=== PATIENT | male | born 1965 | race Caucasian/White ===

== ENCOUNTER 2019-05-02 09:18 | Outpatient (CLI) | payer BC, SELFPAY ==
--- NOTE | 2019-05-02 09:27 | XR_ITS ---
WS: [id number] Chest 2 views, 05/02/2019 Clinical Data: Dyspnea, cough Comparison: Portable chest, 08/30/2018. Findings: No nodules, masses or effusions are seen. The heart is normal. The pulmonary vascularity is not increased. No pneumonia or pneumothorax is seen. The aortic arch and descending aorta are minima lly tortuous. XR/XR chest 2V* 14241 Impression: Atherosclerosis.
== END 2019-05-02 09:19 | disposition home or self-care (01) ==
LOC: RADWPI 09:22
PROVIDERS: Family Provider Internal Medicine; PCP Internal Medicine; Visit Provider Nurse Practitioner Family
DX: I70.90 Unspecified atherosclerosis (principal); R06.00 Dyspnea, unspecified; R05 Cough
CPT/HCPCS: 71046

== ENCOUNTER 2019-07-03 07:53 | Outpatient (CLI) | payer BC, SELFPAY ==
--- NOTE | 2019-07-03 08:10 | CT_ITS ---
WS: [id number] CTA THORACIC AORTA WITH AND WITHOUT HISTORY: THORACIC AORTIC ANEURYSM TECHNIQUE: CT imaging of the thorax is performed with and without contrast. After noncontrast imaging is performed, CT angiogram is performed during injection of Omnipaque 350; 95 mL IV.. Sagittal and c oronal reconstructions, sagittal and coronal MIP imaging is submitted. All CT scans at [facility] use at least one of these dose optimization techniques: automated exposure control; mA and/o r kV adjustment per patient size (includes targeted exams where dose is matched to clinical indicatio n); or iterative reconstruction. DLP: 1457.53 mGycm COMPARISON: 05/02/2018 and 10/10/2017 Mild dilatation of the ascending thoracic aorta. Maximum transverse diameter of 4.5 cm is stable. The re is very mild atherosclerotic plaque. No dissection or progression of the aneurysm. Pulmonary arter y size is normal. Great vessels arise normally from the aortic arch. There are small calcified and noncalcified distal mediastinal and hilar lymph nodes. No increase in s ize or number of the lymph nodes. Scattered calcifications throughout the lungs. Lungs are slightly hyperinflated. No mass or nodule or pneumonia. No pericardial or pleural effusions. Lower neck and the chest wall are normal. Cholelithiasis without evidence for acute cholecystitis. Stable parapelvic cysts LEFT kidney. No adre nal mass. Moderate increase in thoracic kyphosis. CT/CT angio chest 52965 IMPRESSION: 1. Stable mild aneurysmal dilatation of the ascending aorta at 4.5 cm. Prior m easurement of 4.4 cm. 2. Mild atherosclerosis aorta. 3. Prior granulomatous disease. 4. Cholelithiasis without acute cholecystitis.
[2019-07-03] MEDS: iohexol 350 mg/mL 100 mL Btl IV (08:32)
== END 2019-07-03 07:54 | disposition home or self-care (01) ==
LOC: RADWPI 07:57
PROVIDERS: Family Provider Internal Medicine; PCP Internal Medicine; Visit Provider Internal Medicine Cardiovascular Disease
DX: I71.2 Thoracic aortic aneurysm, without rupture (principal); I70.0 Atherosclerosis of aorta; K80.20 Calculus of gallbladder without cholecystitis without obstruction
CPT/HCPCS: 71275; Q9967

== ENCOUNTER 2019-07-18 09:16 | Outpatient (CLI) | payer BC, SELFPAY ==
--- NOTE | 2019-07-18 09:26 | XR_ITS ---
WS: [id number] RIGHT SHOULDER: 3 VIEW(S) TECHNIQUE: Internal and external rotation with Y view. HISTORY: SHOULDER Pain, right COMPARISON: None available. No fracture or dislocation or soft tissue abnormality. Moderate AC joint arthritis and narrowing. 4.5 mm osteophyte from the distal clavicle extends towards the rotator cuff. Similar osteophyte from the adjacent acromion. RIGHT lung granulomata. XR/XR shoulder RT min 2V* [id number] IMPRESSION: Moderate AC joint arthritis with hypertrophic osteophytes extending towards the rotator cuff.
== END 2019-07-18 09:17 | disposition home or self-care (01) ==
LOC: RADWPI 09:18
PROVIDERS: Family Provider Internal Medicine; PCP Internal Medicine; Visit Provider Nurse Practitioner Family
DX: M25.511 Pain in right shoulder (principal); M25.711 Osteophyte, right shoulder
CPT/HCPCS: 73030

== ENCOUNTER 2020-09-21 08:20 | Emergency (ER) | payer BC, SELFPAY ==
[2020-09-21 08:27] VITALS: BP 148/95; PULSE 83; RESP 20; TEMP 36.6; O2SAT 100
--- NOTE | 2020-09-21 08:31 | XRR_ITS ---
PROCEDURE INFORMATION: Exam: XR Chest Exam date and time: 09/21/2020 8:31 AM Age: 54 years old Clinical indication: Pain; Angina pectoris; Additional info: Chest pain TECHNIQUE: Imaging protocol: XR of the chest. Views: 1 view. COMPARISON: XR CHEST 05/02/2019 9:32 AM FINDINGS: Lungs: No pneumonia or pulmonary edema. Prior pulmonary granulomatous disease. Pleural spaces: No pleural effusion or pneumothorax. Heart/Mediastinum: The cardiac silhouette is not enlarged. The mediastinal contours are normal. Vasculature: No definite change in the appearance of the thoracic aorta, though CT CHEST with IV contrast would be more definitive. Bones/joints: There is diffuse idiopathic skeletal hyperostosis. XR/XR chest 1V portable [id number] IMPRESSION: No significant change when compared to XR CHEST 05/02/2019 9:32 AM.
--- NOTE | 2020-09-21 08:31 | ECG_ITS ---
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 Measurements Intervals [place] Rate: 69 P: 29 TN: 163 QRS: 6 QRSD: 96 T: 9 QT: 359 QTc: 386 Interpretive Statements SINUS RHYTHM Compared to ECG 08/30/2018 15:13:27 Early repolarization no longer present Electronically Signed On 09-21-2020 17:28:33 CDT by Tanvir Smith M.D. [id number]
--- NOTE | 2020-09-21 08:42 | W.ED.SOB ---
HPI - SOB/Dyspnea General: Chief Complaint: Shortness of Breath/Dyspnea Stated Complaint: Trouble Breathing/Light Headed/Slight CP Time Seen by Provider: 09/21/20 08:30 History of Present Illness: HPI Narrative: 54-year-old male presents to the emergency room with complaints of late chest pain and some onset of shortness of breath this morning. Patient has a history of a bicuspid valve thoracic aortic aneurysm and he is diabetic. He has previously been vaccinated for Covid. He had stress test which is negative about 2 to 3 years ago. He has had a very slight cough which is been nonproductive he denies any fever chills or myalgias. Chest pain does not radiate anywhere and is very slight and vague. MD elicited complaint: shortness of breath and cough Pertinent past history: diabetes and other (Bicuspid aortic valve, thoracic aortic aneurysm) Onset (ago): hour(s) Timing: constant Severity: moderate Exacerbating factors: exertion and coughing Relieving factors: rest Known history of: diabetes Associated symptoms: Deny abdominal pain, chest congestion, chest pain, cough, diaphoresis, dizziness, extremity pain, fever(s), hemoptysis, lightheadedness, myalgias, nausea, orthopnea, palpitations, paresthesias, polydipsia, polyuria, rash, sense of impending doom, syncope or vomiting Treatment prior to arrival: none Review of Systems Const: Denies: fever(s) or diaphoresis ENMT: Denies: throat pain, ear or mastoid pain, nasal discharge or nasal congestion Card: Denies: chest pain, palpitations, lightheadedness, syncope or orthopnea Resp: Denies: hemoptysis or chest congestion GI: Denies: abdominal pain, nausea or vomiting : Denies: flank pain, dysuria, urinary frequency or urinary urgency Musc: Denies: extremity pain Skin/Breast: Denies: rash or pruritus Neuro: Denies: dizziness Endo: Denies: polyuria or polydipsia PFSH ED PFSH: Medical History Bicuspid aortic valve Diabetes Hx of rheumatic fever Hyperlipidemia Thoracic aortic aneurysm Family History Other CAD (coronary artery disease) Diabetes Hypertension Seizure Social History Smoking and tobacco status: never smoked Alcohol intake: current Alcohol intake frequency: holidays/special occasions only Physical Exam Const: COMMON NORMALS: no acute distress GENERAL APPEARANCE: cooperative and comfortable ORIENTATION/CONSCIOUSNESS: Yes awake, Yes oriented to person, Yes oriented to place and Yes oriented to time HENMT: COMMON NORMALS: normocephalic, atraumatic and hearing grossly normal bilaterally HEAD & SCALP: normocephalic and atraumatic Neck/C-Spine: COMMON NORMALS: no JVD Resp: COMMON NORMALS: normal respiratory effort, No retractions, No use of accessory muscles and clear to auscultation bilaterally AUSCULTATION: clear to auscultation bilaterally Cardio: COMMON NORMALS: no JVD, regular rate, regular rhythm and No murmurs present (Cardio) RATE: regular rate RHYTHM: regular rhythm GI: COMMON NORMALS: Soft to palpation and No hepatosplenomegaly present AUSCULTATION: Yes normoactive bowel sounds PALPATION: Yes Soft to palpation, No Tenderness to palpation present (GI), No Guarding due to palpation present (GI) and Yes No hepatosplenomegaly present Extremity: COMMON NORMALS: normal to inspection, capillary refill normal, no clubbing, cyanosis or edema, no calf tenderness and no pedal edema Neuro: SENSORIUM/ORIENTATION: Yes oriented to person, Yes oriented to place and Yes oriented to time Skin: COMMON NORMALS: no rashes or lesions noted GENERAL SKIN EXAM: no rashes or lesions noted Course Vital Signs: Vital signs: Vital Signs Temperature 97.9 F 09/21/20 08:27 Pulse Rate 70 09/21/20 12:51 Respiratory Rate 16 09/21/20 11:05 Blood Pressure 160/92 09/21/20 12:51 Pulse Oximetry 98 09/21/20 12:51 MDM - SOB/Dyspnea MDM Narrative: Medical decision making narrative: Reviewed labs EKG and imaging findings with the patient. Organ to discharge him home have him take aspirin daily isosorbide mononitrate 30 mg daily set him up for outpatient testing through the case management. Sestamibi stress test MRI of head. Return to emergency room immediately if he has any problems. Otherwise follow-up with his primary care doctor in the next 3 to 5 days to reevaluate blood pressure. Lab Data: Labs: Lab Results 09/21/20 09/21/20 09/21/20 Range/Units 08:27 08:51 08:51 WBC 6.0 (4.0-10.0) 10^3/ uL RBC 5.07 (4.1-5.3) 10^6/u L Hgb 15.2 (11.7-16.6) g/dL Hct 44.0 (42.0-52.0) % MCV 86.8 (80-94) fL MCH 30.0 (28.0-34.0) pg MCHC 34.5 (30.0-36.0) g/dL RDW 11.8 L (12.1-15.1) % Plt Count 292 (130-400) 10^3/c mm MPV 10.1 (7.4-10.4) fL Neut % (Auto) 42.9 % Lymph % (Auto) 39.2 % [place] % (Auto) 13.4 % Eos % (Auto) 3.4 % Baso % (Auto) 0.8 % Neut # (Auto) 2.56 (1.8-7.7) 10^3/u L Lymph # (Auto) 2.3 (0.8-4.8) 10^3/u L [place] # (Auto) 0.8 (0.2-0.9) 10^3/u L Eos # (Auto) 0.2 (0.0-0.8) 10^3/u L Baso # (Auto) 0.1 (0.0-0.1) 10^3/u L Nucleated RBC % (a uto) 0 % Nucleated RBCs # 0.0 /100WBC Sodium 141 (136-145) mmol/L Potassium 3.8 (3.5-5.1) mmol/L Chloride 104 (98-107) mmol/L Carbon Dioxide 24 (22-29) mmol/L Anion Gap 16.8 (5-19) BUN 12 (6-20) mg/dL Creatinine 0.7 (0.7-1.2) mg/dL GFR Calculation 118.0 (90-130) mL/min Glucose 104 (65-115) mg/dL POC Glucose 129 H (70-110) mg/dL Calculated Osmolal ity 292 (285-295) mOsm/k g Calcium 9.3 (8.5-10.5) mg/dL Total Bilirubin 0.7 (0.15-1.2) mg/dL AST 23 (0-40) U/L ALT 20 (0-41) U/L Alkaline Phosphata se 89 (40-130) IU/L Troponin T Baselin e (0-15) ng/L Troponin T 120 Min [place] (0-15) ng/L Delta Troponin T (0-10) ABS# Total Protein 6.7 (6.6-8.7) g/dL Albumin 4.5 (3.5-5.2) g/dL Globulin 2.2 (1.3-4.6) g/dL 09/21/20 09/21/20 09/21/20 Range/Units 08:51 11:29 11:45 WBC (4.0-10.0) 10^3/ uL RBC (4.1-5.3) 10^6/u L Hgb (11.7-16.6) g/dL Hct (42.0-52.0) % MCV (80-94) fL MCH (28.0-34.0) pg MCHC (30.0-36.0) g/dL RDW (12.1-15.1) % Plt Count (130-400) 10^3/c mm MPV (7.4-10.4) fL Neut % (Auto) % Lymph % (Auto) % [place] % (Auto) % Eos % (Auto) % Baso % (Auto) % Neut # (Auto) (1.8-7.7) 10^3/u L Lymph # (Auto) (0.8-4.8) 10^3/u L [place] # (Auto) (0.2-0.9) 10^3/u L Eos # (Auto) (0.0-0.8) 10^3/u L Baso # (Auto) (0.0-0.1) 10^3/u L Nucleated RBC % (a uto) % Nucleated RBCs # /100WBC Sodium (136-145) mmol/L Potassium (3.5-5.1) mmol/L Chloride (98-107) mmol/L Carbon Dioxide (22-29) mmol/L Anion Gap (5-19) BUN (6-20) mg/dL Creatinine (0.7-1.2) mg/dL GFR Calculation (90-130) mL/min Glucose (65-115) mg/dL POC Glucose 42 L (70-110) mg/dL Calculated Osmolal ity (285-295) mOsm/k g Calcium (8.5-10.5) mg/dL Total Bilirubin (0.15-1.2) mg/dL AST (0-40) U/L ALT (0-41) U/L Alkaline Phosphata se (40-130) IU/L Troponin T Baselin e 7 (0-15) ng/L Troponin T 120 Min [place] 6.00 (0-15) ng/L Delta Troponin T -1.00 L (0-10) ABS# Total Protein (6.6-8.7) g/dL Albumin (3.5-5.2) g/dL Globulin (1.3-4.6) g/dL 09/21/20 Range/Units 12:30 WBC (4.0-10.0) 10^3/ uL RBC (4.1-5.3) 10^6/u L Hgb (11.7-16.6) g/dL Hct (42.0-52.0) % MCV (80-94) fL MCH (28.0-34.0) pg MCHC (30.0-36.0) g/dL RDW (12.1-15.1) % Plt Count (130-400) 10^3/c mm MPV (7.4-10.4) fL Neut % (Auto) % Lymph % (Auto) % [place] % (Auto) % Eos % (Auto) % Baso % (Auto) % Neut # (Auto) (1.8-7.7) 10^3/u L Lymph # (Auto) (0.8-4.8) 10^3/u L [place] # (Auto) (0.2-0.9) 10^3/u L Eos # (Auto) (0.0-0.8) 10^3/u L Baso # (Auto) (0.0-0.1) 10^3/u L Nucleated RBC % (a uto) % Nucleated RBCs # /100WBC Sodium (136-145) mmol/L Potassium (3.5-5.1) mmol/L Chloride (98-107) mmol/L Carbon Dioxide (22-29) mmol/L Anion Gap (5-19) BUN (6-20) mg/dL Creatinine (0.7-1.2) mg/dL GFR Calculation (90-130) mL/min Glucose (65-115) mg/dL POC Glucose 65 L (70-110) mg/dL Calculated Osmolal ity (285-295) mOsm/k g Calcium (8.5-10.5) mg/dL Total Bilirubin (0.15-1.2) mg/dL AST (0-40) U/L ALT (0-41) U/L Alkaline Phosphata se (40-130) IU/L Troponin T Baselin e (0-15) ng/L Troponin T 120 Min [place] (0-15) ng/L Delta Troponin T (0-10) ABS# Total Protein (6.6-8.7) g/dL Albumin (3.5-5.2) g/dL Globulin (1.3-4.6) g/dL Discharge Plan Discharge Patient Disposition: Home Clinical Impression: Atypical chest pain, Bicuspid aortic valve, Thoracic aortic aneurysm, Diabetes, Transient ischemic attack, Hypertension Condition: Stable Prescriptions: New aspirin 81 mg tablet,delayed release (DR/EC) 81 mg PO DAILY Qty: 30 RF: 0 isosorbide mononitrate 30 mg tablet extended release 24 hr 30 mg PO DAILY Qty: 30 RF: 0 No Action multivitamin Tablet 1 tab PO QAM RF: 0 nitroglycerin 0.4 mg tablet, sublingual 0.4 mg SUBLINGUAL Q5M PRN (Reason: Chest Pain) RF: 0 pantoprazole 40 mg tablet,delayed release (DR/EC) 40 mg PO QAM RF: 0 lisinopril 5 mg tablet 5 mg PO QAM RF: 0 loratadine 10 mg tablet 10 mg PO DAILY PRN (Reason: Allergy Symptoms) RF: 0 Novolog Flexpen U-100 Insulin 100 unit/mL (3 mL) Insulin Pen See Rx Instructions .ROUTE .COMPLEX RF: 0 Tresiba FlexTouch U-100 100 unit/mL (3 mL) insulin pen 30 unit SUBCUT BEDTIME RF: 0 Discharge Orders: Discharge ED (Routine); Ordered 09/21/20 Ordered By: Oliver Morris Referrals: Saira Hobson DO [Primary Care Provider] - Patient Instructions: Opioid Safety Coding Level of Care Code ED Slicer Machine Operator for Chg Fwd Exam Comprehensive
--- NOTE | 2020-09-21 08:44 | CT_ITS ---
WS: [id number] CTA OF THE CHEST WITH PULMONARY EMBOLISM PROTOCOL TECHNIQUE: High-resolution contrast enhanced CTA of the chest with coronal and sagittal reformatted i mages with pulmonary embolism protocol. MIP images are also reviewed. CLINICAL INFORMATION: chest pain/dyspnea COMPARISON: 07/02 DLP: 581.[address] scans at [facility] use at least one of these dose optimization techniques: automat ed exposure control; mA and/or kV adjustment per patient size (includes targeted exams where dose is matched to clinical indication); or iterative reconstruction. FINDINGS: Proximal main pulmonary arteries are normal. Normal segmental and subsegmental pulmonary arteries. No evidence of pulmonary embolus. Lungs are well aerated. Slight atelectasis in the lung bases. No acute pulmonary infiltrates. No foca l pneumonia or pleural fluid. Moderate thoracic kyphosis. Hypertrophic changes thoracic spine. Ectatic ascending thoracic aorta measuring 4.4 cm unchanged from previous. Normal descending thoracic aorta. Calcified granulomatous disease. No mediastinal or hilar lymphadenopathy. Adrenal glands are normal. Partially visualized parapelvic left renal cysts. Small esophageal hiatal hernia. Cholelithiasis. CT/CT angio chest PE protcl [id number] IMPRESSION: 1. No evidence of pulmonary embolus. 2. Lungs are well aerated. No acute pulmonary infiltrates. 3. Stable ectatic ascending thoracic aorta. 4. Cholelithiasis.
[2020-09-21 08:53] VITALS: BP 151/115; PULSE 78; RESP 24; O2SAT 97
[2020-09-21 08:59] LABS: Basophils # 0.1 10^3/uL (0.0-0.1); Basophils % 0.8 %; Eosinophils # 0.2 10^3/uL (0.0-0.8); Eosinophils % 3.4 %; Hemoglobin 15.2 g/dL (11.7-16.6); Lymphocytes # 2.3 10^3/uL (0.8-4.8); Lymphocytes % 39.2 %; Mean Corpuscular HGB Conc 34.5 g/dL (30.0-36.0); Mean Corpuscular Volume 86.8 fL (80-94); Mean Platelet Volume 10.1 fL (7.4-10.4); Monocytes # 0.8 10^3/uL (0.2-0.9); Monocytes % 13.4 %; Neutrophils # 2.56 10^3/uL (1.8-7.7); Neutrophils % 42.9 %; Nucleated Red Blood Cells % 0 %; Platelet Count 292 10^3/cmm (130-400); Red Blood Count 5.07 10^6/uL (4.1-5.3); Red Cell Distribution Width 11.8 % (12.1-15.1)
[2020-09-21 09:04] VITALS: BP 150/97; PULSE 68; RESP 24; O2SAT 98
[2020-09-21 09:16] LABS: Alanine Aminotransferase 20 U/L (0-41); Albumin Level 4.5 g/dL (3.5-5.2); Alkaline Phosphatase 89 IU/L (40-130); Anion Gap 16.8 (5-19); Aspartate Amino Transferase 23 U/L (0-40); Blood Urea Nitrogen 12 mg/dL (6-20); Calcium 9.3 mg/dL (8.5-10.5); Carbon Dioxide 24 mmol/L (22-29); Chloride 104 mmol/L (98-107); Globulin 2.2 g/dL (1.3-4.6); Glucose 104 mg/dL (65-115); Osmolality Calculated 292 mOsm/kg (285-295); Potassium 3.8 mmol/L (3.5-5.1); Sodium 141 mmol/L (136-145); Total Bilirubin 0.7 mg/dL (0.15-1.2); Total Protein 6.7 g/dL (6.6-8.7)
[2020-09-21 09:29] LABS: Troponin(5th) Baseline 7 ng/L (0-15)
[2020-09-21] MEDS: iohexol 350 mg/mL 100 mL Btl IV (09:31)
--- NOTE | 2020-09-21 10:31 | ECG_ITS ---
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 Measurements Intervals [place] Rate: 61 P: 31 OR: 159 QRS: 6 QRSD: 111 T: 7 QT: 399 QTc: 402 Interpretive Statements SINUS RHYTHM MODERATE INTRAVENTRICULAR CONDUCTION DELAY [110+ ms QRS DURATION] Compared to ECG 09/21/2020 08:47:24 Intraventricular conduction delay now present Electronically Signed On 09-21-2020 17:32:27 CDT by Tanvir Smith M.D. [id number]
[2020-09-21 10:38] LABS: Glucose Point of Care 129 mg/dL (70-110)
[2020-09-21 11:05] VITALS: BP 162/97; PULSE 68; RESP 16; O2SAT 97
--- NOTE | 2020-09-21 11:28 | PC.PHAR ---
PT STATES HE TAKES CARE OF HIS OWN MEDICATIONS-PT STATES HE USES NOVOLOG FLEXPEN PT STATES USUALLY USES SLIDING SCALE BUT ITS USUALLY 10 UNITS-4 UNITS 10 UNITS BUT SOMETIMES CHANGES-RX FILLED ON 09/04/20 AND ROSALINDA STATES NOT PICKED UP-RX FILLED FOR 14 UNITS,4 UNITS,10 UNITS PLUS SLIDING SCALE TID BEFORE MEALS MAX 50 UNITS PER DAY
[2020-09-21 11:47] LABS: Glucose Point of Care 42 mg/dL (70-110)
[2020-09-21 12:33] LABS: Glucose Point of Care 65 mg/dL (70-110)
[2020-09-21 12:51] VITALS: BP 160/92; PULSE 70; O2SAT 98
--- NOTE | 2020-09-21 14:31 | ECG_ITS ---
[facility] Test Date: 2020-09-21 Pat Name: Zully Hughes Department: Room: Gender: Male Media Technician: : 1965 Requested By: Oliver Stock Order Number: [id number] Tanika MD: Tanvir Smith M.D. Measurements Intervals [place] Rate: 69 P: 31 GA: 163 QRS: 6 QRSD: 97 T: 9 QT: 360 QTc: 386 Interpretive Statements SINUS RHYTHM Compared to ECG 09/21/2020 08:47:19 No significant changes Electronically Signed On 09-21-2020 17:33:15 CDT by Tanvir Smith M.D. [email or web address] CENTRAL SYSTEMSsan vicente [id number]
--- NOTE | 2020-09-22 11:50 | DCPLANNER ---
commercial lending relationship manager had message to schedule an outpatient stress test and an MRI for patient. commercial lending relationship manager faxed signed order to centralized scheduling. Centralized scheduling will call patient with appointment information.
--- NOTE | 2020-09-29 13:52 | DCPLANNER ---
Patient has a follow up appointment scheduled for Monday, October 05, 2020 at 10:00 for an outpatient stress test. Centralized scheduling will call patient with appointment information. Patient had an MRI scheduled for 09.29. - patient did attend appointment.
--- NOTE | 2020-10-07 15:06 | DCPLANNER ---
Patient had a stress test scheduled for 10.05.20 - stress test was cancelled.
== END 2020-09-21 12:53 | disposition home or self-care (01) ==
PROVIDERS: Emergency Provider Family Medicine; PCP Internal Medicine
DX: R07.89 Other chest pain (principal); I71.2 Thoracic aortic aneurysm, without rupture; E11.9 Type 2 diabetes mellitus without complications; G45.9 Transient cerebral ischemic attack, unspecified; I10 Essential (primary) hypertension; Z79.4 Long term (current) use of insulin; E78.5 Hyperlipidemia, unspecified
CPT/HCPCS: 36416; 71045; 71275; 80053; 82962; 84484; 85025; 93005; 99283; Q9967

== ENCOUNTER 2020-09-29 07:20 | Outpatient (CLI) | payer BC, SELFPAY ==
--- NOTE | 2020-09-29 07:27 | MR_ITS ---
WS: [id number] MRI BRAIN WITH AND WITHOUT CONTRAST HISTORY: TIA COMPARISON: None available. TECHNIQUE: Multiplanar imaging performed through the brain with MultiHance 20 ml's IV. No acute infarcts are seen. Rodriguez-white matter differentiation is well preserved. Numerous T2 and FLAI R signal hyperintensities in the subcortical white matter. Slightly greater on the RIGHT than the LEF T and predominantly in the frontotemporal region. No prior large territory infarct. No susceptibility artifacts or prior lacunar infarcts. Ventricles and extra-axial spaces are normal. Clivus and pituitary gland are normal. No signal abnormality posterior fossa. CSF collection in the posterior midline consistent with a smal l arachnoid cyst. Postcontrast images are negative for masses or vascular malformations. Dural venous sinuses are normal. Paranasal sinuses: Diffuse mucoperiosteal thickening with enhancement throughout the paranasal sinuse s. No air-fluid levels. Mastoid air cells: Normal. Calvarium and scalp: Normal. MR/MR head wo/w con [id number] IMPRESSION: 1. No acute infarct or mass. 2. Mild to moderate T2 and FLAIR signal foci in the subcortical white matter b ilaterally. Typically seen with hypertension, migraines or small vessel ischemi c disease. No prior infarct. 3. Mild diffuse sinusitis.
[2020-09-29] MEDS: gadobenate dimeglumine 20 mL vial IV (09:43)
== END 2020-09-29 07:21 | disposition home or self-care (01) ==
LOC: RADSHAW 07:25
PROVIDERS: PCP Internal Medicine; Visit Provider Family Medicine
DX: R07.9 Chest pain, unspecified (principal); G45.9 Transient cerebral ischemic attack, unspecified; J32.9 Chronic sinusitis, unspecified
CPT/HCPCS: 70553; A9577

== ENCOUNTER 2020-10-14 09:04 | Emergency (ER) | payer BC, SELFPAY ==
[2020-10-14 09:10] VITALS: BP 164/106; PULSE 72; RESP 18; TEMP 36.9; O2SAT 98; BMI 27.9
--- NOTE | 2020-10-14 09:25 | XR_ITS ---
WS: [id number] Portable AP upright chest, 10/14/2020 Clinical Data: diaphoresis, R arm pain Comparison: Portable chest, 09/21/2020. Findings: No nodules, masses or effusions are seen. The heart is normal. The pulmonary vascularity is not increased. No pneumonia or pneumothorax is seen. The aortic arch and descending aorta are tortuo us. XR/XR chest 1V portable [id number] Impression: Atherosclerosis.
--- NOTE | 2020-10-14 09:25 | ECG_ITS ---
[facility] Test Date: 2020-10-14 Pat Name: Zully Hughes Department: Room: Gender: Male Detective [place]: : 1965 Requested By: David Hidalgo Order Number: [id number] Reading MD: Ryan Champion M.D. Measurements Intervals [place] Rate: 62 P: 17 [place]: 147 QRS: -4 QRSD: 117 T: 2 QT: 404 QTc: 411 Interpretive Statements SINUS RHYTHM MODERATE INTRAVENTRICULAR CONDUCTION DELAY [110+ ms QRS DURATION] MODERATE VOLTAGE CRITERIA FOR LVH, CONSIDER NORMAL VARIANT [MEETS CRITERIA IN ONE OF: R(aVL), S(V1), R(V5), R(V5/V6)+S(V1)] Compared to ECG 09/21/2020 10:38:07 No significant changes Electronically Signed On 10-14-2020 19:35:16 CDT by Ryan Champion M.D. [email or web address] mississippi residential [email or web address] Assistantfirelands regional medical center.[employer]/store/[id number]
[2020-10-14] MEDS: dextrose 50% syringe 50 mL IVP (09:30)
--- NOTE | 2020-10-14 09:31 | ED_ITS ---
HPI - General Adult General: Chief complaint: General Medical Stated complaint: NUmb on R side of face, lighteded dizzy, headache, Time Seen by Provider: 10/14/20 09:10 History of Present Illness: HPI narrative: Patient is a 54-year-old male with history of bicuspid valve, thoracic aortic aneurysm who presents emergency room with complaints of right-sided facial numbness, right eye blurriness, right arm numbness which started about 2 hours ago. Patient denies any focal weakness, diplopia, slurring of speech, facial droop. Patient took his sliding scale insulin this morning. On arrival, fingerstick glucose noted to be 50. Patient denies any chest pain, shortness of breath, exertional fatigue, but has been feeling diaphoretic. Patient denies any nausea vomiting, diarrhea, GI or other complaints. Onset:2 hrs ago Duration:2 hrs Location:home Severity:mild Review of Systems Narrative: Constitutional: No fever, no chills. HEENT: No vision changes CV: No chest pain, no palpitations PULM: no cough, no dyspnea. GI: No abdominal pain, no N/V/D. : No dysuria MSKEL: No muscle pain SKIN: No new rashes, no lesions. NEURO: No headache, no focal weakness. +R facial numbness, +R eye blurriness HEME: No visible bruises PSYCH: Normal mood PFSH ED PFSH: Medical History Bicuspid aortic valve Diabetes Hx of rheumatic fever Hyperlipidemia Thoracic aortic aneurysm Family History Other CAD (coronary artery disease) Diabetes Hypertension Seizure Social History Smoking and tobacco status: never smoked Alcohol intake: current Alcohol intake frequency: holidays/special occasions only Physical Exam Narrative: EXAM NARRATIVE: Head: Atraumatic Eyes: PERRL, conjunctiva without injection ENT: Mucous membrane moist NECK: Supple, ROM intact LUNGS: LCTAB, no crackles/rhonchi CV: RRR, 2+ radial pulses b/l ABDOMEN: Soft, nontender in all quadrants EXTREMITY: Normal ROM SKIN: No rash or erythema NEURO: Mental status? Awake, alert, and oriented to self, year, month, location, and situation.? Following simple axial and appendicular commands.? Has appropriate fund of knowledge, comprehension, and insight.? Able to recall and understands pertinent aspects of medical history and current treatment status.? ? Language? Speech is fluent without word-finding difficulties.? 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 ? Cranial nerves? 2,3,4,6: PERRL, EOMI with no nystagmus. 5: Intact sensation to light touch, symmetric? 7: Smile symmetrical, no facial droop.? 8: Hearing grossly intact.? 9,10: Normal palate movement.? 11: Normal strength in trapezius bilaterally 12: Tongue protrudes midline.? ? Motor examination? Normal bulk & tone. Strength as follows (R/L): Delts (5/5), Biceps (5/5), Triceps (5/5), Wrist ext (5/5), hip flexors (5/5), plantarflexors (5/5), dorsiflexors (5/5). ? Sensation? Light Touch: Grossly intact and equal in upper and lower extremities bilaterally? Romberg: Negative.? Distal joint position sense intact ? Coordination? Upuond-ng-afww-finger movements intact without dysmetria or past-pointing.? Rapid fingertaps: preserved amplitude without decriment.? No tremor, myoclonus or truncal ataxia.? ? Gait/stance? Steady, normal narrow base gait with appropriate arm swing and turning.? Tandem gait without hesitation or loss of balance. PSYCH: Normal mood and affect Course Vital Signs: Vital signs: Vital Signs Temperature 98.4 F 10/14/20 09:10 Pulse Rate 69 10/14/20 11:39 Respiratory Rate 18 10/14/20 11:39 Blood Pressure 151/91 10/14/20 11:39 Pulse Oximetry 97 10/14/20 11:39 MDM - General Adult MDM Narrative: Medical decision making narrative: Patient is a 54-year-old male with a history of bicuspid valve, thoracic aortic aneurysm who presents the emergency room for evaluation of right-sided facial numbness, and right arm numbness with diaphoresis. On exam, patient is hemodynamically stable, 2+ radial pulses bilaterally. Patient denies any active chest pain at this time. Fingerstick of 50, patient received 1 amp of D50 and is tolerating p.o. Diaphoresis, right arm pain, or work-up for chest pain with basic blood work, delta troponin, XR chest, and EKG. EKG is nonischemic. Troponin within normal limits. Chest x-ray did not show any focal finding/or widened mediastinum. Patient received an amp of D50, ate sandwiches in th ER and repeat glucose was 120. Patient noted complaints of facial numbness, arm numbness improved after his glucose was corrected. No suspicion for atypical symptoms of ACS at this time. I do not suspect any acute aortic pathology at this time including chest pain-free aortic dissection given reassuring vitals, no complaints of chest pain radiating towards the back, 2+ pulses in the upper extremities bilaterally. Patient has been in the ER for 2 hrs. Patient has been able to ambulate, multiple glucose readings were within normal limit. Patient was not using any sulfonylure. Since patient use sliding scale mealtime (short-acting) insulin, patient stable for discharge. Disposition: Discharge. Patient is given strict return precaution for any signs of hypoglycemia, focal findings, any new or concerning complaints. Lab Data: Labs: Lab Results 10/14/20 10/14/20 10/14/20 Range/Units 09:19 09:28 09:28 WBC 7.2 (4.0-10.0) 10^3/ uL RBC 4.62 (4.1-5.3) 10^6/u L Hgb 13.9 (11.7-16.6) g/dL Hct 41.4 L (42.0-52.0) % MCV 89.6 (80-94) fl MCH 30.1 (28.0-34.0) pg MCHC 33.6 (30.0-36.0) g/dL RDW 12.0 L (12.1-15.1) % Plt Count 286 (130-400) 10^3/c mm MPV 10.2 (7.4-10.4) fL Neut % (Auto) 66.7 % Lymph % (Auto) 18.9 % Mcdonald % (Auto) 11.7 % Eos % (Auto) 1.8 % Baso % (Auto) 0.6 % Neut # (Auto) 4.81 (1.8-7.7) 10^3/u L Lymph # (Auto) 1.4 (0.8-4.8) 10^3/u L Mcdonald # (Auto) 0.8 (0.2-0.9) 10^3/u L Eos # (Auto) 0.1 (0.0-0.8) 10^3/u L Baso # (Auto) 0.0 (0.0-0.1) 10^3/u L Nucleated RBC % (a uto) 0 % Nucleated RBCs # 0.0 /100WBC Sodium 141 (136-145) mmol/L Potassium 3.9 (3.5-5.1) mmol/L Chloride 104 (98-107) mmol/L Carbon Dioxide 25 (22-29) mmol/L Anion Gap 15.9 (5-19) BUN 19 (6-20) mg/dL Creatinine 0.6 L (0.7-1.2) mg/dL GFR Calculation 140.9 H (90-130) mL/min Glucose 44 L (65-115) mg/dL POC Glucose 50 L (70-110) mg/dL Calculated Osmolal ity 291 (285-295) mOsm/k g Calcium 8.8 (8.5-10.5) mg/dL Troponin T Baselin e (0-15) ng/L SARS-CoV-2 Ag (Rap id) (Negative) 10/14/20 10/14/20 10/14/20 Range/Units 09:28 09:42 10:20 WBC (4.0-10.0) 10^3/ uL RBC (4.1-5.3) 10^6/u L Hgb (11.7-16.6) g/dL Hct (42.0-52.0) % MCV (80-94) fl MCH (28.0-34.0) pg MCHC (30.0-36.0) g/dL RDW (12.1-15.1) % Plt Count (130-400) 10^3/c mm MPV (7.4-10.4) fL Neut % (Auto) % Lymph % (Auto) % Mcdonald % (Auto) % Eos % (Auto) % Baso % (Auto) % Neut # (Auto) (1.8-7.7) 10^3/u L Lymph # (Auto) (0.8-4.8) 10^3/u L Mcdonald # (Auto) (0.2-0.9) 10^3/u L Eos # (Auto) (0.0-0.8) 10^3/u L Baso # (Auto) (0.0-0.1) 10^3/u L Nucleated RBC % (a uto) % Nucleated RBCs # /100WBC Sodium (136-145) mmol/L Potassium (3.5-5.1) mmol/L Chloride (98-107) mmol/L Carbon Dioxide (22-29) mmol/L Anion Gap (5-19) BUN (6-20) mg/dL Creatinine (0.7-1.2) mg/dL GFR Calculation (90-130) mL/min Glucose (65-115) mg/dL POC Glucose 120 H (70-110) mg/dL Calculated Osmolal ity (285-295) mOsm/k g Calcium (8.5-10.5) mg/dL Troponin T Baselin e 7 (0-15) ng/L SARS-CoV-2 Ag (Rap id) Negative (Negative) 10/14/20 Range/Units 11:27 WBC (4.0-10.0) 10^3/ uL RBC (4.1-5.3) 10^6/u L Hgb (11.7-16.6) g/dL Hct (42.0-52.0) % MCV (80-94) fl MCH (28.0-34.0) pg MCHC (30.0-36.0) g/dL RDW (12.1-15.1) % Plt Count (130-400) 10^3/c mm MPV (7.4-10.4) fL Neut % (Auto) % Lymph % (Auto) % Mcdonald % (Auto) % Eos % (Auto) % Baso % (Auto) % Neut # (Auto) (1.8-7.7) 10^3/u L Lymph # (Auto) (0.8-4.8) 10^3/u L Mcdonald # (Auto) (0.2-0.9) 10^3/u L Eos # (Auto) (0.0-0.8) 10^3/u L Baso # (Auto) (0.0-0.1) 10^3/u L Nucleated RBC % (a uto) % Nucleated RBCs # /100WBC Sodium (136-145) mmol/L Potassium (3.5-5.1) mmol/L Chloride (98-107) mmol/L Carbon Dioxide (22-29) mmol/L Anion Gap (5-19) BUN (6-20) mg/dL Creatinine (0.7-1.2) mg/dL GFR Calculation (90-130) mL/min Glucose (65-115) mg/dL POC Glucose 158 H (70-110) mg/dL Calculated Osmolal ity (285-295) mOsm/k g Calcium (8.5-10.5) mg/dL Troponin T Baselin e (0-15) ng/L SARS-CoV-2 Ag (Rap id) (Negative) Discharge Plan Discharge Patient Disposition: Home Clinical Impression: Hypoglycemia, Facial numbness, Arm numbness Condition: Stable Prescriptions: No Action multivitamin Tablet 1 tab PO QAM RF: 0 pantoprazole 40 mg tablet,delayed release (DR/EC) 40 mg PO QAM RF: 0 loratadine 10 mg tablet 10 mg PO DAILY PRN (Reason: Allergy Symptoms) RF: 0 insulin aspart U-100 [Novolog Flexpen U-100 Insulin] 100 unit/mL (3 mL) Insulin Pen See Rx Instructions .ROUTE .COMPLEX RF: 0 Tresiba FlexTouch U-100 100 unit/mL (3 mL) insulin pen 34 unit SUBCUT BEDTIME RF: 0 aspirin 81 mg tablet,delayed release (DR/EC) 81 mg PO QAM RF: 0 losartan 50 mg tablet 50 mg PO QAM RF: 0 fluoxetine 40 mg capsule 40 mg PO QAM RF: 0 doxycycline hyclate 100 mg tablet 100 mg PO DAILY RF: 0 Discharge Orders: Discharge ED (Routine); Ordered 10/14/20 Ordered By: David Hidalgo Referrals: Saira Hobson DO [Primary Care Provider] - Discharge Diet: Advance as tolerated Discharge Activity: Resume usual activity Patient Instructions: Hypoglycemia Activity Restrictions/Additional Instructions: Please come back to the emergency room if your symptoms worsen, if you have any acute focal weakness, slurring of speech, facial droop, hoarseness of voice, or any new or concerning complaints Coding Level of Care Code ED Cnc Field Service Engineer for Viviang Keiry
[2020-10-14 09:35] LABS: Glucose Point of Care 50 mg/dL (70-110)
[2020-10-14 09:38] VITALS: BP 164/106; RESP 18; O2SAT 96
[2020-10-14 09:42] LABS: Basophils % 0.6 %; Eosinophils # 0.1 10^3/uL (0.0-0.8); Eosinophils % 1.8 %; Hematocrit 41.4 % (42.0-52.0); Hemoglobin 13.9 g/dL (11.7-16.6); Lymphocytes # 1.4 10^3/uL (0.8-4.8); Lymphocytes % 18.9 %; Mean Corpuscular HGB Conc 33.6 g/dL (30.0-36.0); Mean Corpuscular Hemoglobin 30.1 pg (28.0-34.0); Mean Corpuscular Volume 89.6 fl (80-94); Mean Platelet Volume 10.2 fL (7.4-10.4); Monocytes # 0.8 10^3/uL (0.2-0.9); Monocytes % 11.7 %; Neutrophils # 4.81 10^3/uL (1.8-7.7); Neutrophils % 66.7 %; Nucleated Red Blood Cells % 0 %; Platelet Count 286 10^3/cmm (130-400); Red Blood Count 4.62 10^6/uL (4.1-5.3); White Blood Count 7.2 10^3/uL (4.0-10.0)
--- NOTE | 2020-10-14 10:07 | PC.PHAR ---
Addendum entered by Sarah Mitchell 10/14/20 10:16: rx written in 09/24/20 for imdur er 30mg daily by er pt states he didnt get Original Note: pt states he takes care of his own medications-rx filled on 09/24/20 10d/s for doxycycline hyclate 100mg bid-pt states he has only been taking 100mg daily-pt states he took his last cap today-PT STATES he USES novolog flexpen 10 UNITS in the am -4 UNITS at lunch,and 14 UNITS at bedtime plus sliding scale-RX FILLED ON 09/04/20 AND [facility] STATES NOT PICKED UP-RX FILLED FOR 14 UNITS,4 UNITS,10 UNITS PLUS SLIDING SCALE TID BEFORE MEALS MAX 50 UNITS PER DAY-rx filled on 10/12/20 -rx filled on 09/04/20 for tresiba flextouch as 30 units hs (max 40 units) pt states he uses 34 units at bedtime-rx filled on 10/12/20 90d/s losartan 50mg qam - pt was on 25mg daily filled on 09/25/20 90d/s
[2020-10-14 10:08] LABS: SARS Covid-2 Antigen Negative (Negative)
[2020-10-14 10:19] LABS: Troponin(5th) Baseline 7 ng/L (0-15)
[2020-10-14 10:21] LABS: Blood Urea Nitrogen 19 mg/dL (6-20); Calcium 8.8 mg/dL (8.5-10.5); Carbon Dioxide 25 mmol/L (22-29); Chloride 104 mmol/L (98-107); Glomerular Filtration Rate 140.9 mL/min (90-130); Glucose 44 mg/dL (65-115); Osmolality Calculated 291 mOsm/kg (285-295); Sodium 141 mmol/L (136-145)
[2020-10-14 10:24] LABS: Glucose Point of Care 120 mg/dL (70-110)
[2020-10-14 10:24] LABS: Anion Gap 15.9 (5-19); Potassium 3.9 mmol/L (3.5-5.1)
[2020-10-14 11:05] VITALS: BP 154/90; PULSE 67; RESP 18; O2SAT 98
[2020-10-14 11:31] LABS: Glucose Point of Care 158 mg/dL (70-110)
[2020-10-14 11:39] VITALS: BP 151/91; PULSE 69; RESP 18; O2SAT 97
== END 2020-10-14 11:38 | disposition home or self-care (01) ==
PROVIDERS: Emergency Provider Emergency Medicine; PCP Internal Medicine
DX: R20.0 Anesthesia of skin (principal); E11.649 Type 2 diabetes mellitus with hypoglycemia without coma; Z79.4 Long term (current) use of insulin; Z79.82 Long term (current) use of aspirin; E78.5 Hyperlipidemia, unspecified; Z20.822 Contact with and (suspected) exposure to COVID-19
CPT/HCPCS: 36415; 36416; 71045; 80048; 82962; 84484; 85025; 87426; 93005; 99283

== ENCOUNTER → 2020-12-31 16:00 | Outpatient (BNVA) | payer BC, SELFPAY | PROVIDERS: PCP Internal Medicine; Visit Provider Internal Medicine Cardiovascular Disease | DX: I10 Essential (primary) hypertension (principal) | CPT/HCPCS: 80048; 83735 ==

== ENCOUNTER 2021-02-16 09:41 | Emergency (ER) | payer BC, SELFPAY ==
[2021-02-16 09:55] VITALS: BP 130/86; PULSE 106; RESP 20; TEMP 36.4; O2SAT 99; BMI 28.7
--- NOTE | 2021-02-16 10:09 | ECG_ITS ---
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 Measurements Intervals [place] Rate: 91 P: 17 [place]: 124 QRS: 23 QRSD: 108 T: -13 QT: 367 QTc: 452 Interpretive Statements SINUS RHYTHM Compared to ECG 10/14/2020 09:44:12 Intraventricular conduction delay no longer present Electronically Signed On 02-16-2021 12:56:38 EXTENSION SERVICE AGENT by Betty Angeles M.D. [id number]
--- NOTE | 2021-02-16 10:09 | XRR_ITS ---
PROCEDURE INFORMATION: Exam: XR Chest Exam date and time: 02/16/2021 10:09 AM Age: 55 years old Clinical indication: Shortness of breath; Additional info: SOB TECHNIQUE: Imaging protocol: XR of the chest. Views: 1 view. Total images: 1 COMPARISON: CR XR chest 1V portable [id number] 10/14/2020 9:25 AM FINDINGS: Lungs: Benign granulomatous disease of the lung is noted. Pleural spaces: Unremarkable. No pleural effusion. No pneumothorax. Heart/Mediastinum: Unremarkable. No cardiomegaly. Diaphragm: There is nonspecific elevation of the left hemidiaphragm. Bones/joints: Osseous structures are unchanged from the prior exam. XR/XR chest 1V portable [id number] IMPRESSION: No acute cardiopulmonary process.
[2021-02-16 11:20] LABS: Basophils # 0.1 10^3/uL (0.0-0.1); Basophils % 0.5 %; Eosinophils # 0.2 10^3/uL (0.0-0.8); Eosinophils % 1.7 %; Hematocrit 44.3 % (42.0-52.0); Hemoglobin 15.6 g/dL (11.7-16.6); Lymphocytes # 2.2 10^3/uL (0.8-4.8); Lymphocytes % 21.9 %; Mean Corpuscular HGB Conc 35.2 g/dL (30.0-36.0); Mean Corpuscular Hemoglobin 30.6 pg (28.0-34.0); Mean Platelet Volume 10.3 fL (7.4-10.4); Monocytes # 0.9 10^3/uL (0.2-0.9); Monocytes % 9.1 %; Neutrophils % 66.5 %; Nucleated Red Blood Cells % 0 %; Platelet Count 332 10^3/cmm (130-400); Red Blood Count 5.09 10^6/uL (4.1-5.3); Red Cell Distribution Width 11.6 % (12.1-15.1); White Blood Count 9.9 10^3/uL (4.0-10.0)
[2021-02-16 11:36] LABS: Alanine Aminotransferase 18 U/L (0-41); Albumin Level 4.4 g/dL (3.5-5.2); Alkaline Phosphatase 83 IU/L (40-130); Anion Gap 19.4 (5-19); Aspartate Amino Transferase 19 U/L (0-40); Blood Urea Nitrogen 20 mg/dL (6-20); Carbon Dioxide 23 mmol/L (22-29); Chloride 95 mmol/L (98-107); Creatinine Clr Calc Pharmacy 106.2886; Glomerular Filtration Rate 87.9 mL/min (90-130); Glucose 291 mg/dL (65-115); Osmolality Calculated 291 mOsm/kg (285-295); Potassium 3.4 mmol/L (3.5-5.1); Sodium 134 mmol/L (136-145); Total Bilirubin 0.4 mg/dL (0.15-1.2); Total Protein 7.4 g/dL (6.6-8.7)
[2021-02-16 11:45] LABS: Ketone (Acetest) Serum Negative (Negative)
--- NOTE | 2021-02-16 11:49 | W.ED.GENADLT ---
Documented by User: ERIN Norwood 02/16/21 11:50 HPI - General Adult General: Chief complaint: General Medical Stated complaint: HIGH B/P RAPID HEART RATE SOB Time Seen by Provider: 02/16/21 12:12 History of Present Illness: HPI narrative: Patient presents here with increased heart rate. Patient said he woke up with his heart rate at 96. Says he feels fine now. Denies any recent illness. [facility] ED PFSH: Medical History Bicuspid aortic valve Diabetes Hx of rheumatic fever Hyperlipidemia Thoracic aortic aneurysm Family History Other CAD (coronary artery disease) Diabetes Hypertension Seizure Social History Alcohol intake: current Alcohol intake frequency: holidays/special occasions only Course Vital Signs: Vital signs: Vital Signs Temperature 97.6 F 02/16/21 09:55 Pulse Rate 106 H 02/16/21 09:55 Respiratory Rate 20 H 02/16/21 09:55 Blood Pressure 130/86 02/16/21 09:55 Pulse Oximetry 99 02/16/21 09:55 MDM - General Adult MDM Narrative: Medical decision making narrative: Brief history and physical exam was performed as part of the triage process. Due to current ED wait time patient will be placed in waiting room until a room becomes available. Explained to patient he/she will be seen in order of severity. Patient is currently safe to wait in the waiting room until we can get them placed. Patient informed that if condition worsens at any time to please let the front office supervisor know. Lab Data: Labs: Lab Results 02/16/21 02/16/21 02/16/21 11:10 11:10 11:10 WBC 9.9 10^3/uL 10^3/ uL (4.0-10.0) RBC 5.09 10^6/uL 10^6 /uL (4.1-5.3) Hgb 15.6 g/dL g/dL (11.7-16.6) Hct 44.3 % % (42.0-52.0) MCV 87.0 fl fl (80-94) MCH 30.6 pg pg (28.0-34.0) MCHC 35.2 g/dL g/dL (30.0-36.0) RDW 11.6 % L % (12.1-15.1) Plt Count 332 10^3/cmm 10^3 /cmm (130-400) MPV 10.3 fL fL (7.4-10.4) Neut % (Auto) 66.5 % % Lymph % (Auto) 21.9 % % [place] % (Auto) 9.1 % % Eos % (Auto) 1.7 % % Baso % (Auto) 0.5 % % Neut # (Auto) 6.60 10^3/uL 10^3 /uL (1.8-7.7) Lymph # (Auto) 2.2 10^3/uL 10^3/ uL (0.8-4.8) [place] # (Auto) 0.9 10^3/uL 10^3/ uL (0.2-0.9) Eos # (Auto) 0.2 10^3/uL 10^3/ uL (0.0-0.8) Baso # (Auto) 0.1 10^3/uL 10^3/ uL (0.0-0.1) Nucleated RBC % (a uto) 0 % % Nucleated RBCs # 0.0 /100WBC /100W BC D-Dimer Sodium 134 mmol/L L mmol /L (136-145) Potassium 3.4 mmol/L L mmol /L (3.5-5.1) Chloride 95 mmol/L L mmol/ L (98-107) Carbon Dioxide 23 mmol/L mmol/L (22-29) Anion Gap 19.4 H (5-19) BUN 20 mg/dL mg/dL (6-20) Creatinine 0.9 mg/dL mg/dL (0.7-1.2) GFR Calculation 87.9 mL/min L mL/ min (90-130) Glucose 291 mg/dL H mg/dL (65-115) Calculated Osmolal ity 291 mOsm/kg mOsm/ kg (285-295) Calcium 9.0 mg/dL mg/dL (8.5-10.5) Total Bilirubin 0.4 mg/dL mg/dL (0.15-1.2) AST 19 U/L U/L (0-40) ALT 18 U/L U/L (0-41) Alkaline Phosphata se 83 IU/L IU/L (40-130) Troponin T Baselin e Total Protein 7.4 g/dL g/dL (6.6-8.7) Albumin 4.4 g/dL g/dL (3.5-5.2) Globulin 3.0 g/dL g/dL (1.3-4.6) Serum Ketones Negative (Negative) 02/16/21 02/16/21 11:10 11:10 WBC RBC Hgb Hct MCV MCH MCHC RDW Plt Count MPV Neut % (Auto) Lymph % (Auto) [place] % (Auto) Eos % (Auto) Baso % (Auto) Neut # (Auto) Lymph # (Auto) [place] # (Auto) Eos # (Auto) Baso # (Auto) Nucleated RBC % (a uto) Nucleated RBCs # D-Dimer <= 0.27 ug/mIFEU ug/mIFEU (0-0.59) Sodium Potassium Chloride Carbon Dioxide Anion Gap BUN Creatinine GFR Calculation Glucose Calculated Osmolal ity Calcium Total Bilirubin AST ALT Alkaline Phosphata se Troponin T Baselin e 7 ng/L ng/L (0-15) Total Protein Albumin Globulin Serum Ketones Discharge Plan Discharge Patient Disposition: Home Clinical Impression: Dyspnea, Chest pressure Condition: Stable Prescriptions: No Action tamsulosin 0.4 mg capsule 0.4 mg PO DAILY RF: 0 multivitamin Tablet 1 tab PO QAM RF: 0 nitroglycerin 0.4 mg tablet, sublingual 0.4 mg sublingual Q5M PRN (Reason: chest pain) Qty: 30 RF: 3 hydrochlorothiazide 25 mg tablet 25 mg PO DAILY Qty: 30 RF: 3 diltiazem HCl 300 mg tablet extended release 24 hr 300 mg PO DAILY Qty: 90 RF: 3 potassium gluconate 595 mg (99 mg) tablet 595 mg PO DAILY RF: 0 pantoprazole 40 mg tablet,delayed release (DR/EC) 40 mg PO QAM RF: 0 loratadine 10 mg tablet 10 mg PO DAILY PRN (Reason: Allergy Symptoms) RF: 0 insulin aspart U-100 [Novolog Flexpen U-100 Insulin] 100 unit/mL (3 mL) Insulin Pen See Rx Instructions .ROUTE .COMPLEX RF: 0 Tresiba FlexTouch U-100 100 unit/mL (3 mL) insulin pen 34 unit SUBCUT BEDTIME RF: 0 aspirin 81 mg tablet,delayed release (DR/EC) 81 mg PO QAM RF: 0 fluoxetine 40 mg capsule 40 mg PO QAM RF: 0 losartan 50 mg tablet 100 mg PO QAM RF: 0 Discharge Orders: Discharge ED (Routine); Ordered 02/16/21 Ordered By: David Hidalgo Referrals: Saira Hobson, [Primary Care Provider] - Discharge Diet: Advance as tolerated Discharge Activity: Resume usual activity Patient Instructions: Chest Pain (ED) Activity Restrictions/Additional Instructions: Follow-up with Dr. Angeles later this afternoon at 3 PM. Come back to the emergency room for any worsening chest pain, shortness breath, palpitation or lightheadedness. Please talk to Dr. Angeles about a loop recorder, whether you need an echo to evaluate for your aortic regurgitation, and your blood pressure medicine. Coding Level of Care Code ED Healthcare Consultant for Chg Fwd Documented by User: David Hidalgo MD 02/16/21 13:16 HPI - General Adult General: Chief complaint: General Medical Stated complaint: HIGH B/P RAPID HEART RATE SOB Time Seen by Provider: 02/16/21 12:12 History of Present Illness: HPI narrative: Patient is a 55-year-old male with history of diabetes, hypertension who presents emergency room with complaints of dyspnea and chest pressure upon waking up this morning. Patient tells me that he took his blood pressure and noticed that it was elevated to the 160 systolic. In addition, patient noticed that his glucose does not appear to be controlled at 260. Patient was going to work when he felt mildly short of breath and a dull chest pain lasting for few minutes at a time. Patient denies any active chest pain currently. Denies any history of VTE's in the past. No family history of aneurysm. Denies any pleuritic chest pain, nausea/vomiting, fever/chills, or any other complaints at this time. Onset: 6am Duration: ongoing Intensity: moderate Location: work Review of Systems Narrative: Constitutional: No fever, no chills. HEENT: No vision changes CV: +chest pressure, no palpitations PULM: no cough, +dyspnea. GI: No abdominal pain, no N/V/D. : No dysuria MSKEL: No muscle pain SKIN: No new rashes, no lesions. NEURO: No headache, no focal weakness. HEME: No visible bruises PSYCH: Normal mood PFSH ED PFSH: Medical History Bicuspid aortic valve Diabetes Hx of rheumatic fever Hyperlipidemia Thoracic aortic aneurysm Family History Other CAD (coronary artery disease) Diabetes Hypertension Seizure Social History Alcohol intake: current Alcohol intake frequency: holidays/special occasions only Physical Exam Narrative: EXAM NARRATIVE: Head: Atraumatic Eyes: PERRL, conjunctiva without injection ENT: Mucous membrane moist NECK: Supple, ROM intact LUNGS: LCTAB, no crackles/rhonchi CV: Sinus tachycardia, 2+ radial pulses ABDOMEN: Soft, nontender in all quadrants EXTREMITY: Normal ROM SKIN: No rash or erythema NEURO: Awake and alert, no focal motor deficits PSYCH: Normal mood and affect Course Vital Signs: Vital signs: Vital Signs Temperature 97.6 F 02/16/21 09:55 Pulse Rate 106 H 02/16/21 09:55 Respiratory Rate 20 H 02/16/21 09:55 Blood Pressure 130/86 02/16/21 09:55 Pulse Oximetry 99 02/16/21 09:55 MDM - General Adult MDM Narrative: Medical decision making narrative: [53]yo patient w/ hx of DM, HTN, AR followed by Dr. Angeles presenting to the ED with evaluation of new onset sharp chest pain for the last 5 hrs. HDS, pulse 2+ radially bilaterally, no signs of fluid overload, AAOx3, neuro exam intact. Given History and Exam today I have no suspicion for Pneumonia, Pulmonary Embolus, Tamponade, Aortic Dissection or other emergent problems as a cause for this presentation. Workup: ECG, CXR, CBC, BMP, Troponin, dimer Interventions: IVF Findings: ECG: No overt evidence of STEMI, hyperacute T waves, localizable STD or T wave inversions. No evidence of Brugada?s sign, delta wave, epsilon wave, significantly prolonged QTc, or malignant arrhythmia. No Q waves. Other Labs unremarkable for emergent problems. CXR: Without PTX, PNA, or widened mediastinum [1:14pm] On reassessment, the patient is HDS, no complaints of persistent chest pain in the ED after evaluation. ECG is non-ischemic. Workup today is unremarkable. Doubt ACS/PE or other emergent causes of chest pain. Troponin within normal limit. Patient tells me that he has an appoint with Dr. Angeles today at 3 PM. Instructed patient to keep the appointment. Patient is to return to the emergency room should he have any more symptoms of chest pain, shortness breath or any other complaints. Patient tells me that he will talk to Dr. Angeles address issues of hypertension, recurrent light-headedness, and aortic regurgitation. Doubt ACS/PE or other emergent causes of chest pain. No suspicion for aortic dissection given no widened mediastinum, 2+ upper extremity pulses, or tearing pain. No suspicion for PE given no pleuritic chest pain, recent immobilization or surgery hemoptysis, or other VTE risk factors. EKG is non-ischemic. XR normal. Disposition: Discharge. Strict return precautions discussed with the patient with full understanding. Advised patient to follow up promptly with a primary care provider in 24-48 hrs if the patient has persistent symptoms. Given return instructions for any crushing/tearing chest pain, focal weakness, syncope or any new or concerning issues. Lab Data: Labs: Lab Results 02/16/21 02/16/21 02/16/21 11:10 11:10 11:10 WBC 9.9 10^3/uL 10^3/ uL (4.0-10.0) RBC 5.09 10^6/uL 10^6 /uL (4.1-5.3) Hgb 15.6 g/dL g/dL (11.7-16.6) Hct 44.3 % % (42.0-52.0) MCV 87.0 fl fl (80-94) MCH 30.6 pg pg (28.0-34.0) MCHC 35.2 g/dL g/dL (30.0-36.0) RDW 11.6 % L % (12.1-15.1) Plt Count 332 10^3/cmm 10^3 /cmm (130-400) MPV 10.3 fL fL (7.4-10.4) Neut % (Auto) 66.5 % % Lymph % (Auto) 21.9 % % [place] % (Auto) 9.1 % % Eos % (Auto) 1.7 % % Baso % (Auto) 0.5 % % Neut # (Auto) 6.60 10^3/uL 10^3 /uL (1.8-7.7) Lymph # (Auto) 2.2 10^3/uL 10^3/ uL (0.8-4.8) [place] # (Auto) 0.9 10^3/uL 10^3/ uL (0.2-0.9) Eos # (Auto) 0.2 10^3/uL 10^3/ uL (0.0-0.8) Baso # (Auto) 0.1 10^3/uL 10^3/ uL (0.0-0.1) Nucleated RBC % (a uto) 0 % % Nucleated RBCs # 0.0 /100WBC /100W BC D-Dimer Sodium 134 mmol/L L mmol /L (136-145) Potassium 3.4 mmol/L L mmol /L (3.5-5.1) Chloride 95 mmol/L L mmol/ L (98-107) Carbon Dioxide 23 mmol/L mmol/L (22-29) Anion Gap 19.4 H (5-19) BUN 20 mg/dL mg/dL (6-20) Creatinine 0.9 mg/dL mg/dL (0.7-1.2) GFR Calculation 87.9 mL/min L mL/ min (90-130) Glucose 291 mg/dL H mg/dL (65-115) Calculated Osmolal ity 291 mOsm/kg mOsm/ kg (285-295) Calcium 9.0 mg/dL mg/dL (8.5-10.5) Total Bilirubin 0.4 mg/dL mg/dL (0.15-1.2) AST 19 U/L U/L (0-40) ALT 18 U/L U/L (0-41) Alkaline Phosphata se 83 IU/L IU/L (40-130) Troponin T Baselin e Total Protein 7.4 g/dL g/dL (6.6-8.7) Albumin 4.4 g/dL g/dL (3.5-5.2) Globulin 3.0 g/dL g/dL (1.3-4.6) Serum Ketones Negative (Negative) 02/16/21 02/16/21 11:10 11:10 WBC RBC Hgb Hct MCV MCH MCHC RDW Plt Count MPV Neut % (Auto) Lymph % (Auto) [place] % (Auto) Eos % (Auto) Baso % (Auto) Neut # (Auto) Lymph # (Auto) [place] # (Auto) Eos # (Auto) Baso # (Auto) Nucleated RBC % (a uto) Nucleated RBCs # D-Dimer <= 0.27 ug/mIFEU ug/mIFEU (0-0.59) Sodium Potassium Chloride Carbon Dioxide Anion Gap BUN Creatinine GFR Calculation Glucose Calculated Osmolal ity Calcium Total Bilirubin AST ALT Alkaline Phosphata se Troponin T Baselin e 7 ng/L ng/L (0-15) Total Protein Albumin Globulin Serum Ketones Imaging Data^: Other Imaging: Radiologist's impression: [address] [id number] ReportSigned Patient: Zully Hughes #: [id number]: 1965Acct#:[id number]/Sex: 55 / MADM Date: 02/16/21[facility]:Attending Dr: Ordering Provider/Ordering MD: Chris Thomas , [facility] Date of Service: 02/16/21 Procedure(s): XR chest 1V portable [id number] Accession Number(s): [id number] Report Number: [id number] PROCEDURE INFORMATION: Exam: XR Chest Exam date and time: 02/16/2021 10:09 AM Age: 55 years old Clinical indication: Shortness of breath; Additional info: SOB TECHNIQUE: Imaging protocol: XR of the chest. Views: 1 view. Total images: 1 COMPARISON: CR XR chest 1V portable [id number] 10/14/2020 9:25 AM FINDINGS: Lungs: Benign granulomatous disease of the lung is noted. Pleural spaces: Unremarkable. No pleural effusion. No pneumothorax. Heart/Mediastinum: Unremarkable. No cardiomegaly. Diaphragm: There is nonspecific elevation of the left hemidiaphragm. Bones/joints: Osseous structures are unchanged from the prior exam. XR/XR chest 1V portable [id number] IMPRESSION: No acute cardiopulmonary process. Dictated By:Tejas Herman MDSigned By:eTjas Herman MDSigned Date/Time:02/16/21 1045DD/ 1009 Discharge Plan Discharge Patient Disposition: Home Clinical Impression: Dyspnea, Chest pressure Condition: Stable Prescriptions: No Action tamsulosin 0.4 mg capsule 0.4 mg PO DAILY RF: 0 multivitamin Tablet 1 tab PO QAM RF: 0 nitroglycerin 0.4 mg tablet, sublingual 0.4 mg sublingual Q5M PRN (Reason: chest pain) Qty: 30 RF: 3 hydrochlorothiazide 25 mg tablet 25 mg PO DAILY Qty: 30 RF: 3 diltiazem HCl 300 mg tablet extended release 24 hr 300 mg PO DAILY Qty: 90 RF: 3 potassium gluconate 595 mg (99 mg) tablet 595 mg PO DAILY RF: 0 pantoprazole 40 mg tablet,delayed release (DR/EC) 40 mg PO QAM RF: 0 loratadine 10 mg tablet 10 mg PO DAILY PRN (Reason: Allergy Symptoms) RF: 0 insulin aspart U-100 [Novolog Flexpen U-100 Insulin] 100 unit/mL (3 mL) Insulin Pen See Rx Instructions .ROUTE .COMPLEX RF: 0 Tresiba FlexTouch U-100 100 unit/mL (3 mL) insulin pen 34 unit SUBCUT BEDTIME RF: 0 aspirin 81 mg tablet,delayed release (DR/EC) 81 mg PO QAM RF: 0 fluoxetine 40 mg capsule 40 mg PO QAM RF: 0 losartan 50 mg tablet 100 mg PO QAM RF: 0 Discharge Orders: Discharge ED (Routine); Ordered 02/16/21 Ordered By: David Hidalgo Referrals: Saira Hobson, [Primary Care Provider] - Discharge Diet: Advance as tolerated Discharge Activity: Resume usual activity Patient Instructions: Chest Pain (ED) Activity Restrictions/Additional Instructions: Follow-up with Dr. Angeles later this afternoon at 3 PM. Come back to the emergency room for any worsening chest pain, shortness breath, palpitation or lightheadedness. Please talk to Dr. Karthik about a loop recorder, whether you need an echo to evaluate for your aortic regurgitation, and your blood pressure medicine. Coding Level of Care Code ED Healthcare Consultant for Leida Ricci
[2021-02-16 12:42] LABS: D Dimer <= 0.27 ug/mIFEU (0-0.59)
[2021-02-16] MEDS: sodium chloride 0.9% 1,000 ML 999 ML IV (12:45)
[2021-02-16 12:46] LABS: Troponin(5th) Baseline 7 ng/L (0-15)
[2021-02-16] MEDS: aspirin 325 mg Tablet PO (12:46)
[2021-02-16 13:36] VITALS: BP 161/114; PULSE 85; RESP 18; O2SAT 97
== END 2021-02-16 13:54 | disposition home or self-care (01) ==
PROVIDERS: Nurse Practitioner Family; Emergency Provider Emergency Medicine; PCP Internal Medicine
DX: R06.00 Dyspnea, unspecified (principal); R07.89 Other chest pain; Z79.4 Long term (current) use of insulin; Z79.82 Long term (current) use of aspirin; E11.9 Type 2 diabetes mellitus without complications; E78.5 Hyperlipidemia, unspecified
CPT/HCPCS: 36415; 71045; 80053; 82009; 84484; 85025; 85378; 93005; 96360; 99283; J7030

== ENCOUNTER 2021-04-05 15:15 | Outpatient (CLI) | payer BC, SELFPAY ==
--- NOTE | 2021-04-05 15:19 | USCV_ITS ---
AldenhemaZully turpin Age: 55 Gender: M : 1965 Exam Date: 04/05/2021 15:50 Ordering Phys: Betty Angeles MD ([email or web address]) Technologist: Roselyn Witt [place]am [place] [facility] [place] Indication: Thoracic aortic anuerysm, w/o rupture BP: 140 / 80 HR: 58 Rhythm: Sinus Technical Quality: Adequate MEASUREMENTS (Male / Female) Normal Values 2D ECHO LV Diastolic Diameter PLAX 4.6 cm 4.2 - 5.9 / 3.9 - 5.3 cm LV Systolic Diameter PLAX 3.0 cm IVS Diastolic Thickness 1.2 cm 0.6 - 1.0 / 0.6 - 0.9 cm IVS Systolic Thickness 1.1 cm LVPW Diastolic Thickness 1.4 cm 0.6 - 1.0 / 0.6 - 0.9 cm LVPW Systolic Thickness 1.3 cm RV Chamber Size 3.4 cm LVOT Diameter 2.0 cm LV Ejection Fraction 2D Teich 62.0 % LV Ejection Fraction MOD 2C 60.5 % LV Ejection Fraction 2C AL 60.6 % LA Diameter 3.0 cm LA Width 3.4 cm LA Height 3.9 cm RA Width 3.6 cm RA Height 4.0 cm Aorta at Sinotubular Diameter 3.7 cm M-MODE Aortic Annulus Diameter 3.7 cm LA Ao Ratio MM 0.8 MV E Point Septal Separation 0.9 cm DOPPLER AV Peak Velocity 202.0 cm/s LVOT Peak Velocity 83.0 cm/s AV Area Cont Eq vti 1.4 cm squared AV Area Cont Eq pk 1.4 cm squared MV Area PHT 5.0 cm squared Mitral E to A Ratio 1.5 MV E' Velocity 39.5 cm/s Mitral E to MV E' Ratio 8.4 Mitral E to LV E' Lateral Ratio 6.9 Mitral E to LV E' Septal Ratio 10.9 TR Peak Velocity 301.0 cm/s TR Peak Gradient 36.2 mmHg TV Peak E Velocity 55.0 cm/s PV Peak Velocity 93.0 cm/s RV Acceleration Time 0.1 s RV Ejection Time 0.3 s RV AcT/ET 0.4 FINDINGS Left Ventricle Normal left ventricular size, systolic function and wall thickness, with no regional wall motion abnormalities. Left ventricular ejection fraction is estimated at 65 %. Normal diastolic function. Right Ventricle Normal right ventricular size and systolic function. RVSP could not be calculated due to incomplete tricuspid regurgitation velocity profile. Right Atrium Normal right atrial size. Left Atrium Normal left atrial size. Mitral Valve Structurally normal mitral valve. No mitral valve stenosis. No significant mitral valve regurgitation. Aortic Valve Aortic valve not well visualized. No aortic valve stenosis. Mild to moderate eccentric aortic valve regurgitation. Tricuspid Valve Structurally normal tricuspid valve. No tricuspid valve stenosis. Trace to mild tricuspid valve regurgitation. Pulmonic Valve Structurally normal pulmonic valve. No pulmonary valve stenosis. Trace pulmonary valve regurgitation. Pericardium No pericardial effusion. Aorta Normal size aortic root. Moderately dilated proximal ascending aorta measured anteroposteriorly at 46 mm Hg. CONCLUSIONS 1. Normal left ventricular size, systolic function and wall thickness, with no regional wall motion abnormalities. Left ventricular ejection fraction is estimated at 65 %. Normal diastolic function. 2. Normal right ventricular size and systolic function. 3. Mild to moderate eccentric aortic valve regurgitation. 4. Moderately dilated proximal ascending aorta measured anteroposteriorly at 46 mm Hg. 5. When compared to previous study dated 10/05/2017, proximal ascending aorta appears dilated. Betty Angeles MD (Electronically Signed) Final Date: 07 April 2021 17:30 Amended: 12 April 2021 12:11 C
== END 2021-04-05 15:16 | disposition home or self-care (01) ==
LOC: RAD 15:18
PROVIDERS: PCP Internal Medicine; Visit Provider Nurse Practitioner Family
DX: R01.1 Cardiac murmur, unspecified (principal); R06.02 Shortness of breath; I10 Essential (primary) hypertension; I71.2 Thoracic aortic aneurysm, without rupture; I35.1 Nonrheumatic aortic (valve) insufficiency
CPT/HCPCS: 93306

== ENCOUNTER → 2021-05-12 15:36 | Outpatient (BNVA) | payer BC, SELFPAY | PROVIDERS: PCP Internal Medicine; Visit Provider Nurse Practitioner | DX: R51.9 Headache, unspecified (principal) | CPT/HCPCS: 87400 ==

== ENCOUNTER 2021-11-05 07:13 | Outpatient (CLI) | payer BC, SELFPAY ==
[2021-11-05 07:57] LABS: Anion Gap 13.6 (5-19); Blood Urea Nitrogen 19 mg/dL (6-20); Calcium 9.3 mg/dL (8.5-10.5); Carbon Dioxide 29 mmol/L (22-29); Chloride 98 mmol/L (98-107); Glomerular Filtration Rate 87.6 mL/min (90-130); Glucose 225 mg/dL (65-115); Osmolality Calculated 291 mOsm/kg (285-295); Potassium 4.6 mmol/L (3.5-5.1); Sodium 136 mmol/L (136-145)
== END 2021-11-05 07:14 | disposition home or self-care (01) ==
PROVIDERS: PCP Internal Medicine; Visit Provider Internal Medicine Cardiovascular Disease
DX: I10 Essential (primary) hypertension (principal)
CPT/HCPCS: 80048

== ENCOUNTER 2022-08-08 07:01 | Outpatient (CLI) | payer OTHER, SELFPAY ==
--- NOTE | 2022-08-08 07:14 | MR_ITS ---
WS: [id number] MRI LEFT SHOULDER NONCONTRAST TECHNIQUE: Sagittal T2, coronal T1, T2 and proton density imaging. Axial gradient PDE imaging. CLINICAL INFORMATION: PAIN IN LEFT SHOULDER JOINT COMPARISON: None. FINDINGS: Moderate degenerative arthritis AC joint. Mild downsloping acromion. Slight subacromial spurring. Imp ingement on the distal supraspinatus. Mild narrowing of the subacromial space. Small amount of subacr omial and subdeltoid fluid. Slight impingement on the distal supraspinatus. Tendinopathy distal supraspinatus. Tiny insertional t ear infraspinatus insertion. Normal teres minor. Normal subscapularis. Normal biceps tendon in the b icipital groove. Normal biceps labral anchor. Glenoid labrum appears grossly intact. MR/MR shoulder LT wo con* [id number] IMPRESSION: 1. Moderate degenerative arthritis AC joint with mild edema. Slight impingemen t on the distal supraspinatus with slight subacromial spurring. 2. Tendinopathy distal supraspinatus. Tiny insertional tear distal infraspinat us. 3. No full-thickness rotator cuff tears. 4. Normal biceps tendon in the bicipital groove. 5. Biceps labral anchor appears intact. 6. No other acute findings.
== END 2022-08-08 07:02 | disposition home or self-care (01) ==
PROVIDERS: PCP Internal Medicine; Visit Provider Family Medicine
DX: M19.012 Primary osteoarthritis, left shoulder (principal); M25.812 Other specified joint disorders, left shoulder; M25.512 Pain in left shoulder; R60.9 Edema, unspecified
CPT/HCPCS: 73221

== ENCOUNTER → 2022-10-10 10:25 | Outpatient (BNVA) | payer OTHER, SELFPAY | PROVIDERS: PCP Internal Medicine; Visit Provider Specialist | DX: M75.82 Other shoulder lesions, left shoulder | CPT/HCPCS: 73030 ==

== ENCOUNTER → 2022-12-07 15:25 | Outpatient (BNVA) | payer OTHER, SELFPAY | PROVIDERS: PCP Internal Medicine; Visit Provider Nurse Practitioner | DX: Z01.818 Encounter for other preprocedural examination (principal) | CPT/HCPCS: 36415; 80053; 85025 ==

== ENCOUNTER 2022-12-30 05:27 | Day surgery (SDC) | payer OTHER, SELFPAY ==
[2022-12-30] VITALS (12 sets, daily range): BP systolic 108–137; BP diastolic 82–92; PULSE 51–64; RESP 14–18; TEMP 36.2–36.7; O2SAT 94–99; BMI 29.4
[2022-12-30] MEDS: CELEcoxib 200 mg Capsule 400 MG PO (06:15)
[2022-12-30] MEDS: gabapentin 300 mg Capsule PO (06:15)
--- NOTE | 2022-12-30 06:26 | P.ANESASSM_ITS ---
Pre-Anesthetic Assessment Height/Weight: Height 1.78 m Weight 92.986 kg Temp Pulse Resp BP Pulse Ox O2 Del Method 98.1 F 64 18 130/82 98 Room Air 12/30/22 06:00 12/30/22 06:00 12/30/22 06:00 12/30/22 06:00 12/30/22 06:00 12/30/22 06:04 Operation Date: 12/30/22 07:00 Proposed Procedures p Left shoulder acromioplasty,32116,M19.012,M25.812(Left) - Holli Beyer MD s open distal clavicle resection 23769(Left) - Holli Beyer MD s possible rotator cuff repair 99822(Left) - Holli Beyer MD Familial anesthetic complications: none Was Beta Audelia taken within 24 hours: N/A Was Clonidine taken within 24 hours: N/A Last intake: Intake Last Liquid Date 12/29/22 Last Liquid Time 19:30 Last Solid Date 12/29/22 Last Solid Time 17:00 Social No alcohol and No tobacco Exam alert, oriented x 3, clear to auscultation bilaterally and regular rate & rhythm Airway Mallampati: Class II Dentition: other (removed) CV/HEM Hypertension TAA and bicuspid valve Metabolic Diabetes Mellitus Anesthetic Plan ASA status: 2 Anesthesia: General and Regional (specify below) Risk of > 500 ml blood loss (7ml/kg in children): No Medications/Allergies Home Medications Medication Instructions Recorded Confirmed Last Taken Type insulin aspart U-100 100 unit/mL See Rx Instructions .Route 09/21/20 12/29/22 12/29/22 History (3 mL) subcutaneous pen (Novolog .COMPLEX SEE PHARMACY COMMENTS FlexPen U-100 Insulin aspart) insulin degludec 100 unit/mL (3 42 unit SUBCUT BEDTIME 09/21/20 12/29/22 12/28/22 History mL) subcutaneous pen (Tresiba FlexTouch U-100 insulin) loratadine 10 mg tablet 10 mg PO DAILY PRN Allergy Symptoms 09/21/20 12/29/22 Unknown History losartan 50 mg tablet 100 mg PO QAM 12/01/20 12/29/22 12/29/22 History nitroglycerin 0.4 mg sublingual 0.4 mg sublingual Q5M PRN chest 12/31/20 12/29/22 Unknown Rx tablet pain #30 tabs potassium gluconate 595 mg (99 mg) 595 mg PO DAILY 01/04/21 12/29/22 12/29/22 History tablet diltiazem HCl 180 mg 180 mg PO BID #180 caps 03/05/21 12/29/22 12/29/22 Rx capsule,extended release 24 hr hydrochlorothiazide 25 mg tablet 25 mg PO DAILY #90 tabs 03/30/21 12/29/22 12/29/22 Rx Allergies Allergy/AdvReac Type Severity Reaction Status Date / Time No Known Allergies Allergy Verified 12/29/22 08:56 [facility] Anesthesia Medical History Bicuspid aortic valve Diabetes DJD of left AC (acromioclavicular) joint Hx of rheumatic fever Hyperlipidemia Impingement of left shoulder Thoracic aortic aneurysm Family History Other CAD (coronary artery disease) Diabetes Hypertension Seizure Social History Smoking and tobacco/nicotine status: never used tobacco/nicotine Alcohol intake: current Alcohol intake frequency: holidays/special occasions only Substance/Drug Use: never Data Anesthesia Cardiac Studies: Echocardiogram 04/05/21 Holter Monitor 03/04/21
[2022-12-30 06:28] LABS: Glucose Point of Care 187 mg/dL (70-110)
[2022-12-30] MEDS: acetaminophen 1,000 MG/100 ML PIGGYBACK 400 MG IV (06:33)
[2022-12-30] MEDS: sodium chloride 0.9% 1,000 ML 30 ML IV (06:38)
--- NOTE | 2022-12-30 06:58 | P.HPUD_ITS ---
Surgery/Procedure H&P Update DATE OF PROCEDURE: December 30, 2022 DATE H&P PERFORMED: 12/07/22 H&P UPDATE INFORMATION: I have reviewed H&P completed within last 30 days, I have examined patient prior to procedure, No changes to prior documentation and H&P is in [facility] [place] on date indicated PLANNED PROCEDURE: Operation Date: 12/30/22 07:00 Proposed Procedures p Left shoulder acromioplasty,79586,M19.012,M25.812(Left) - Holli Beyer MD s open distal clavicle resection 00833(Left) - Holli Beyer MD s possible rotator cuff repair 02842(Left) - Holli Beyer MD Related Problem List Diagnoses (1) Impingement of left shoulder: (2) Tendonitis of left rotator cuff: (3) DJD of left AC (acromioclavicular) joint:
--- NOTE | 2022-12-30 06:58 | W.PM.OPSUD ---
Surgery/Procedure H&P Update DATE OF PROCEDURE: December 30, 2022 DATE H&P PERFORMED: 12/07/22 H&P UPDATE INFORMATION: I have reviewed H&P completed within last 30 days, I have examined patient prior to procedure, No changes to prior documentation and [place] [facility] [place] PLANNED PROCEDURE: Operation Date: 12/30/22 07:00 Proposed Procedures p Left shoulder acromioplasty,87958,M19.012,M25.812(Left) - Holli Beyer MD s open distal clavicle resection 58778(Left) - Holli Beyer MD s possible rotator cuff repair 16255(Left) - Holli Beyer MD Related Problem List Diagnoses (1) Impingement of left shoulder: (2) Tendonitis of left rotator cuff: (3) DJD of left AC (acromioclavicular) joint:
--- NOTE | 2022-12-30 06:58 | ANES.PROC ---
Anesthesia Procedures Procedure/Date: 12/30/22 Nerve Block ^: Nerve Block 1: Main Anesthesia: general anesthesia Time Out Performed: Yes Consent: requested by attending/covering physician, from patient, from other, risks and benefits reviewed and patient agrees to proceed Nerve block location: interscalene (L) Anesthesia monitors applied: pulse oximetry, EKG and BP cuff Nerve block position: supine Anesthetic Used: ropivicaine 0.5% (20 ml) and with decadron (4 mg) Ultrasound used to: recognize landmarks, visualize and ID brachial plexus and visualize and ID interscalene groove Nerve Stimulator Used?: No Interscalene/Femoral BLK: 2 stimuplex 22 g needle used for position and inplane approach, visualize local anesthetic spread and no vascular puncture identified Injection: neg aspiration of heme Patient Tolerated Procedure: well Complications: none
[2022-12-30] MEDS: ceFAZolin 2,000 MG in sodium chloride 0.9% (plus) 50 ML 100 MG IV (07:00)
[2022-12-30] MEDS: ceFAZolin 1,000 mg SDV 1000 MG IRRIGATION (07:49)
--- NOTE | 2022-12-30 08:47 | P.OP_ITS ---
Operative Report Date of procedure: December 30, 2022 Pre-op diagnosis: Left shoulder impingement with rotator cuff tendinitis and acromioclavicular joint degenerative osteoarthritis. Possible rotator cuff tear. Post-op diagnosis: Left shoulder impingement with rotator cuff tendinitis and acromioclavicular joint degenerative osteoarthritis. Post-op findings: Bursal thickening, degenerative osteoarthritis of the acromioclavicular joint, impingement, and no evidence of significant rotator cuff tear. Procedure done: Left shoulder open acromioplasty with distal clavicle resection, bursectomy, and evaluation of rotator cuff Specimens removed/disposition: None Surgeon: Holli Beyer MD [employer] Professional: [facility] Anesthesia: General (Intubated, ASA 2) Estimated blood loss (mL): 25 IV fluids (mL): 400 Urine output (mL): 0 (No Lovett) Complications: None Findings: Significant impingement with thickened acromion. Degenerative arthritis of the acromioclavicular joint. Small bursal surface irregularity in the distal supraspinatus with minimal penetration into the tendon. Condition: stable Disposition: PACU (Then return to same-day surgery for discharge to home.) Brief History: This 57-year-old gentleman presented with complaints of left shoulder pain. He underwent physical therapy and meloxicam prior to consideration of surgical intervention. He has had pain over the past 8 to 9 months without specific injury. He had popping and pain in his shoulder with range of motion. He also had cortisone injection without relief. MRI demonstrated impingement and tendinitis particularly involving the supraspinatus tendon as well as acromioclavicular joint degenerative osteoarthritis. After discussion, the patient wished to proceed with operative intervention. He therefore was scheduled for open acromioplasty with distal clavicle resection and possible rotator cuff repair. Questions were answered preoperatively in the office, and consents were signed. Procedure: The patient was brought to the operating theater and underwent general anesthesia, intubated, ASA 2. The patient was placed in a beachchair position and subsequently the left upper extremity was prepped and draped in the usual fashion utilizing DuraPrep. The arm was draped free. A surgical pause was performed prior to commencement of the surgical procedure. At the time of the surgical pause, we confirmed the site and side of surgery as well as administration of appropriate preoperative antibiotics Ancef 2 g. MRI was also reviewed at that time. Following the surgical pause, an incision was made at approximately the level of the acromioclavicular joint extending across the anterolateral corner of the acromion and distally as necessary. Care was taken to avoid injury to the axillary nerve by limiting the distal extent of the incision. Dissection continued through skin and soft tissues using a scalpel. Hemostasis was obtained using electrocautery. Soft tissues were elevated off the acromion. An acromioplasty was then accomplished using a combination of a saw and a power rasp. With this, we were able to remove compression caused by the acromion. The rotator cuff was then evaluated to look for tears. MRI had noted a possible small insertion site tear at the distal supraspinatus tendon. Enough acromion was removed to allow my finger to be placed comfortably under the acromion without significant impingement. Bursectomy was also accomplished. The rotator cuff tear was evaluated. There was evidence of a small irregularity at the distal aspect of the supraspinatus tendon, however, this was evaluated and was found to not be a complete tear. There was no need for repair of the small irregularity as it was quite superficial on the bursal side. The shoulder was placed through full range of motion to evaluate for any further tearing or evidence of pathology. After the rotator cuff had been thus addressed, the shoulder was placed through further range of motion to assure there was no further evidence of rotator cuff tear. The acromioclavicular joint was exposed. A saw was then used to resect the distal clavicle without difficulty. The undersurface of the clavicle was palpated and was slightly further debrided. A power rasp was used to further smooth the area. When this was felt to be adequately resected, the wound was irrigated. Attention was then directed to closure. The wound was irrigated and closure was accomplished with 0 Vicryl in the capsular tissues overlying the acromioclavicular joint area as well as over the acromion and down into the deltoid muscle. 3-0 Monocryl was used to close the subcutaneous tissues followed by 4-0 Monocryl subcuticular closure. This was followed by Dermabond, Steri-Strips, and an OpSite. The patient was placed in a sling and was returned to the recovery room in satisfactory condition. The patient will be discharged to home to follow-up with me in the office as scheduled. There were no complications and no specimens. Related Problem List Diagnoses (1) Impingement of left shoulder: (2) DJD of left AC (acromioclavicular) joint: (3) Tendonitis of left rotator cuff:
[2022-12-30] MEDS: fentaNYL 50 mcg/mL INJ 2mL IVP (08:51)
[2022-12-30] MEDS: HYDROcodone-acetaminophen 5-325 mg Tablet 1 TAB PO (09:32)
--- NOTE | 2022-12-30 10:00 | ANE.PACU2 ---
Inpatient post-anesthesia follow up: Airway intact: Yes Vital signs: Temperature 97.1 F Pulse Rate 59 Respiratory Rate 18 Blood Pressure 136/82 Pulse Oximetry 97 Oxygen Delivery Me thod Room Air Oxygen Flow Rate 6 Fraction of Inspir ed Oxygen Hydration adequate: Yes Nausea and vomiting: No Pain level: 1 Mental status: Baseline
== END 2022-12-30 10:00 | disposition home or self-care (01) ==
PROVIDERS: PCP Internal Medicine; Visit Provider Specialist
PROC: (CPT 23130; principal; 2022-12-30 07:00)
PROC: (CPT 23120; 2022-12-30 07:00)
PROC: (CPT 23120; 2022-12-30 07:00)
DX: M19.012 Primary osteoarthritis, left shoulder (principal); M75.42 Impingement syndrome of left shoulder; I10 Essential (primary) hypertension; E11.9 Type 2 diabetes mellitus without complications; Z79.4 Long term (current) use of insulin; E78.5 Hyperlipidemia, unspecified
CPT/HCPCS: 23120; 23130; 36416; 82962; J0131; J0690; J1100; J2250; J2405; J2704; J2710; J2795; J3010; J3490; J7030

== ENCOUNTER → 2023-02-01 09:22 | Outpatient (BNVA) | payer OTHER, SELFPAY | PROVIDERS: PCP Internal Medicine; Visit Provider Nurse Practitioner | DX: Z98.890 Other specified postprocedural states (principal); M19.012 Primary osteoarthritis, left shoulder; M25.812 Other specified joint disorders, left shoulder; M75.82 Other shoulder lesions, left shoulder | CPT/HCPCS: 73030 ==

== ENCOUNTER 2024-09-23 07:12 | Emergency (ER) | payer BC, SELFPAY ==
[2024-09-23 07:21] VITALS: BP 155/97; PULSE 76; RESP 18; TEMP 36.8; O2SAT 98; BMI 27.2
--- NOTE | 2024-09-23 07:30 | W.ED.HA ---
HPI - Headache General: Chief Complaint: Headache Stated Complaint: BERKOWITZ Time Seen by Provider: 09/23/24 07:13 Source: patient Mode of arrival: ambulatory Limitations: no limitations History of Present Illness: 58-year-old male who states that he had a history of migraines in the past states he woke up this morning the headache at 530 states headaches gradually worsened states he does feel like his previous migraines he has photophobia and phonophobia. He denies any vomiting denies any fever denies this being the worst headache of his life. Associated symptoms: Deny chest pain, fever(s), nausea, rash or vomiting Related Data Home Medications ?Medication ?Instructions ?Recorded ?Confirmed insulin aspart U-100 100 unit/mL See Rx Instructions .Route 09/21/20 03/29/23 (3 mL) subcutaneous pen (Novolog .COMPLEX SEE PHARMACY COMMENTS FlexPen U-100 Insulin aspart) insulin degludec 100 unit/mL (3 42 unit SUBCUT BEDTIME 09/21/20 03/29/23 mL) subcutaneous pen (Tresiba FlexTouch U-100 insulin) loratadine 10 mg tablet 10 mg PO DAILY PRN Allergy Symptoms 09/21/20 03/29/23 losartan 50 mg tablet 100 mg PO QAM 12/01/20 03/29/23 potassium gluconate 595 mg (99 mg) 595 mg PO DAILY 01/04/21 03/29/23 tablet Previous Rx's ?Medication ?Instructions ?Recorded nitroglycerin 0.4 mg sublingual 0.4 mg sublingual Q5M PRN chest 12/31/20 tablet pain #30 tabs diltiazem HCl 180 mg 180 mg PO BID #180 caps 03/05/21 capsule,extended release 24 hr hydrochlorothiazide 25 mg tablet 25 mg PO DAILY #90 tabs 03/30/21 naproxen 500 mg tablet 500 mg PO BID PRN pain #60 tabs 02/01/23 diclofenac sodium 1 % topical gel 4 g topical QID #100 grams 03/01/23 Allergies Allergy/AdvReac Type Severity Reaction Status Date / Time No Known Allergies Allergy Verified 03/29/23 10:53 Review of Systems Const: Denies: fever(s), chills, body aches or change in appetite Eyes: Denies: blurry vision or eye discomfort ENMT: Denies: throat pain or dental pain Card: Denies: chest pain Resp: Denies: dyspnea GI: Denies: abdominal pain, nausea, vomiting or diarrhea Musc: Denies: neck pain or back pain Skin/Breast: Denies: rash Neuro: Reports: headache(s) [facility] PFSH: Medical History Work related injury DJD of left AC (acromioclavicular) joint Impingement of left shoulder Diabetes Thoracic aortic aneurysm Bicuspid aortic valve Hyperlipidemia Hx of rheumatic fever Surgical History Post-operative state Family History Other CAD (coronary artery disease) Diabetes Hypertension Seizure Social History Smoking and tobacco/nicotine status: never used tobacco/nicotine Alcohol intake: current Alcohol intake frequency: holidays/special occasions only Substance/Drug Use: never Physical Exam Const: COMMON NORMALS: no acute distress, patient oriented x3 and healthy appearing HENMT: COMMON NORMALS: normocephalic and atraumatic HEAD & SCALP: normocephalic and atraumatic Eye: COMMON NORMALS: Equal, round and reactive pupils present and EOMs intact bilaterally PUPIL: Yes Equal, round and reactive pupils present Neck/C-Spine: COMMON NORMALS: full ROM and supple Chest: COMMONS NORMALS: normal inspection of the chest Resp: COMMON NORMALS: normal respiratory effort, No retractions, No use of accessory muscles and clear to auscultation bilaterally AUSCULTATION: clear to auscultation bilaterally Cardio: COMMON NORMALS: regular rate, regular rhythm and No murmurs present (Cardio) RATE: regular rate RHYTHM: regular rhythm Extremity: COMMON NORMALS: normal to inspection and full ROM Neuro: COMMON NORMALS: patient oriented x3, moves all extremities and no focal motor deficits Psych: COMMON NORMALS: mental status grossly normal, Normal thought process present and cooperative THOUGHT PROCESS: Normal thought process present Skin: COMMON NORMALS: no rashes or lesions noted and no wounds GENERAL SKIN EXAM: no rashes or lesions noted Course Vital Signs: Vital signs: Vital Signs Temperature 98.2 F 09/23/24 07:21 Pulse Rate 76 09/23/24 07:21 Respiratory Rate 18 09/23/24 07:21 Blood Pressure 155/97 09/23/24 07:21 Pulse Oximetry 98 09/23/24 07:21 Oxygen Delivery Me thod Room Air 09/23/24 07:21 MDM - Headache Medical Decision Making Patient presents here with headaches likely migraine headache he has no signs of meningitis or subarachnoid hemorrhage she feels improved here and wants to go home he stable for discharge follow-up PCP return if worsening. Medical Records I reviewed the patient's medical records. No radiology studies performed this visit Discharge Plan Discharge Patient Disposition: Home Clinical Impression: Headache Condition: Stable Prescriptions: No Action nitroglycerin 0.4 mg tablet, sublingual 0.4 mg sublingual Q5M PRN (Reason: chest pain) Qty: 30 3RF Rx Instructions: do not exceed 3 doses per episode naproxen 500 mg tablet 500 mg PO BID PRN (Reason: pain) Qty: 60 1RF diclofenac sodium 1 % gel 4 g topical QID Qty: 100 2RF Rx Instructions: apply to single knee, ankle, shoulder, foot; for foot includes sole/toes/top of foot. potassium gluconate 595 mg (99 mg) tablet 595 mg PO DAILY diltiazem HCl 180 mg capsule,extended release 24hr 180 mg PO BID Qty: 180 2RF hydrochlorothiazide 25 mg tablet 25 mg PO DAILY Qty: 90 3RF loratadine 10 mg tablet 10 mg PO DAILY PRN (Reason: Allergy Symptoms) insulin aspart U-100 [Novolog FlexPen U-100 Insulin] 100 unit/mL (3 mL) Insulin Pen See Rx Instructions .ROUTE .COMPLEX Rx Instructions: 10 units qam, 4 units at lunch, and 14 units bedtime plus sliding scale insulin degludec [Tresiba FlexTouch U-100] 100 unit/mL (3 mL) insulin pen 42 unit SUBCUT BEDTIME losartan 50 mg tablet 100 mg PO QAM Discharge Orders: Discharge ED (Routine); Ordered 09/23/24 Ordered By: Bryanna Carter Referrals: Tejas Escobar [Primary Care Provider, Family Practice] - 4-7 days Discharge Diet: Advance as tolerated Discharge Activity: Resume usual activity Patient Instructions: Migraine Headache (ED) Print Language: French Coding Level of Care Code ED [employer] T[employer] for [facility]
[2024-09-23] MEDS: diphenhydrAMINE 50 mg/mL SDV 1mL IM (07:42)
[2024-09-23] MEDS: metoclopramide 5 mg/mL SDV 2 mL 10 MG IM (07:42)
== END 2024-09-23 08:08 | disposition home or self-care (01) ==
PROVIDERS: Emergency Provider Emergency Medicine; PCP Family Medicine
DX: R51.9 Headache, unspecified (principal); Z79.4 Long term (current) use of insulin; E11.9 Type 2 diabetes mellitus without complications; E78.5 Hyperlipidemia, unspecified
CPT/HCPCS: 96372; 99284; J1200; J1885; J2765